=== PATIENT | female | born 1950 | race Caucasian/White ===

== ENCOUNTER 2016-08-27 16:24 | Emergency (ER) | payer OTHER ==
[~2016-08-27] VITALS: Ht 157.5 cm; Wt 50.2 kg
[2016-08-27] MEDS ORDERED: KEFLEX500 MG PO (18:02)
[2016-08-27] MEDS ORDERED: ULTRACET1 TABLET PO (18:10)
[2016-08-27] MEDS ORDERED: MOTRIN600 MG PO (18:10)
[2016-08-27 18:27] VITALS: BP 115/60
== END 2016-08-27 18:28 | disposition home or self-care (01) ==
LOC: EME 16:24
DX: S56.127A Laceration of flexor muscle, fascia and tendon of right little finger at forearm level, initial encounter (principal); W26.9XXA Contact with unspecified sharp object(s), initial encounter; Y93.H2 Activity, gardening and landscaping; Z23 Encounter for immunization
CPT/HCPCS: 99281; 99284; S0020